=== PATIENT | female | born 1970 | race Caucasian/White ===

== ENCOUNTER 2017-10-21 18:26 | Emergency (ER) | payer BC ==
[2017-10-21] MEDS ORDERED: Amoxicillin/Clavulanate TAB* 875 MG PO ONE (20:40)
[2017-10-21] MEDS ORDERED: Benzonatate CAP* 100 MG PO ONE (20:41)
[2017-10-21 20:47] VITALS: BP 126/74
--- NOTE | 2017-10-21 20:49 | UC ---
Throat Pain/Nasal Curtis HPI - HPI Summary HPI Summary: ONE WEEK OF RIGHT EAR ACHE, PRODUCTIVE COUGH. - History of Current Complaint Chief Complaint: UCRespiratory Stated Complaint: COUGH,CONGESTION Time Seen by Provider: 10/21/17 20:35 Hx Obtained From: Patient, Family/Softball Winder Onset/Duration: Gradual Onset, Lasting Weeks, Still Present Severity: Moderate Cough: Productive Associated Signs & Symptoms: Positive: Hoarseness, Sinus Discomfort, Nasal Discharge - Epiglottits Risk Factors Epiglottis Risk Factors: Negative - Allergies/Home Medications Allergies/Adverse Reactions: Allergies Allergy/AdvReac Type Severity Reaction Status Date / Time No Known Allergies Allergy Verified 10/21/17 20:20 PMH/Surg Hx/FS Hx/Imm Hx Previously Healthy: Yes - Surgical History Surgical History: Yes Surgery Procedure, Year, and Place: Ear tubes. C-sec x2. Endometrial ablation. Tubal ligation - Family History Known Family History: Negative: Respiratory Disease - Social History Occupation: Employed Full-time Lives: With Family Alcohol Use: None Substance Use Type: None Smoking Status (MU): Never Smoked Tobacco - Immunization History Most Recent Influenza Vaccination: no Review of Systems Constitutional: Negative Skin: Negative Eyes: Negative ENT: Sinus Congestion, Sinus Pain/Tenderness Respiratory: Cough Cardiovascular: Negative Gastrointestinal: Negative Genitourinary: Negative Motor: Negative Neurovascular: Negative Musculoskeletal: Negative Neurological: Negative Psychological: Negative Is Patient Immunocompromised?: No All Other Systems Reviewed And Are Negative: Yes Physical Exam Triage Information Reviewed: Yes Appearance: Well-Appearing, No Pain Distress, Well-Nourished Vital Signs: Initial Vital Signs Temp 97.7 F 10/21/17 20:20 Pulse 99 10/21/17 20:20 Resp 20 10/21/17 20:20 BP 126/74 10/21/17 20:20 Pulse Ox 99 10/21/17 20:20 Vital Signs Reviewed: Yes Eye Exam: Normal ENT: Positive: Nasal congestion, Nasal drainage, TM dull Dental Exam: Normal Dental: Positive: Percussion Tenderness @, Gross Decay/Caries @, Dental Fracture @ Neck exam: Normal Neck: Positive: Supple, Nontender, No Lymphadenopathy Respiratory Exam: Other - COUGH Respiratory: Positive: Chest non-tender, Lungs clear, Normal breath sounds, No respiratory distress, No accessory muscle use Cardiovascular Exam: Normal Cardiovascular: Positive: RRR, No Murmur, Pulses Normal Abdominal Exam: Normal Abdomen Description: Positive: Nontender, No Organomegaly Musculoskeletal Exam: Normal Musculoskeletal: Positive: Strength Intact, ROM Intact Neurological Exam: Normal Psychological Exam: Normal Skin Exam: Normal Throat Pain/Nasal Course/Dx - Differential Dx/Diagnosis Differential Diagnosis/HQI/PQRI: Sinusitis, Tonsillitis, URI Provider Diagnoses: SINUSITIS; BRONCHITIS Discharge - Discharge Plan Condition: Stable Disposition: HOME Prescriptions: Amoxicillin/Clavulanate TAB* [Augmentin TAB 875*] 875 mg PO BID #20 tab Benzonatate CAP* [Tessalon 100 MG CAP*] 100 mg PO TID PRN #12 cap PRN Reason: Cough Patient Education Materials: Sinusitis (ED), Acute Bronchitis (ED) Referrals: Arlyn Guy MD [Primary Care Provider] -
--- OUTSIDE RECORDS SUMMARY | 2017-10-21 21:06 | XMS REPORT | Continuity of Care Document ---
:[address] [facility] Care Team Providers Name Role Phone KALPANA IGNACIO MD Primary Care Physician [phone] Insurance Providers Payer Name Policy Number Subscriber Name Relationship BLUE PPO [id number] TITA LEWIS SELF Advance Directives Directive Response Recorded Date/Time Code status: Full code 09/22/17 11:44am Advance Directive? N 09/22/17 11:44am Living Will? N 09/22/17 11:44am Health Care Proxy? N 09/22/17 11:44am Is the patient an Organ Donor? Y 09/22/17 11:44am Chief Complaint and Reason for Visit Reason for Visit POSS CONCUSSION,HARD TIME SEEING Problems No problem information available. Medications Current Home Medications Medication Dose Units Route Directions Days/Qty Instructions Start Date Citalopram Hydrobromide 10 MG ORAL ONCE DAILY (Celexa) 10 MG TABLET Past Home Medications Medication Directions Ordered Status Amoxicillin (Amoxil) 875 Mg Tab Tab, 875 Mg Oral 3 TIMES DAILY 01/01/07 Discontinued Warfarin Sodium (Coumadin) 10 Mg Tab Tab, Unknown Discontinued Warfarin Sodium (Coumadin) 10 Mg Tablet Tablet, ONCE DAILY Unknown Discontinued 10 Mg Oral Social History Problem Response Recorded Date Other substance/drug use DENIES 09/22/17 Alcohol amt OCCAS 04/16/11 Query Response Start Date Stop Date Smoking Status Never smoker Hospital Discharge Instructions No hospital discharge instructions. Plan of Care Discharge Date 09/22/17 Disposition Routine Discharge Home Instructions/Education Provided Concussion (ED) Head Injury (ED) Prescriptions See Medications Section Referrals KALPNAA IGNACIO MD - Additional Instructions/Education You need to make an appointment to follow- up with the following health care provider or your regular doctor within 3 days. Please make your appointment to see your health care provider as soon as possible. Please return immediately if your symptoms worsen, or you cannot get a follow-up appointment. Functional Status Query Response Date Recorded Do you get in and out of a chair: Independently September 22, 2017 11:45am Do you bathe/dress: Independently September 22, 2017 11:45am Adaptive devices: None September 22, 2017 11:45am Living situation: Independent at home September 22, 2017 11:45am Allergies, Adverse Reactions, Alerts Allergen Type Severity Reaction Status Last Updated codeine AdvReac Intermediate VOMITING Active 09/22/17 Immunizations Name Date Given Type Last Tetanus Historical Vital Signs Vital Reading Collection Date/Time Result Blood Pressure 09/22/17 1:55pm 110/79 Temperature 09/22/17 1:55pm 98.2 F Temperature Source 09/22/17 1:55pm Oral Respiratory Rate 09/22/17 1:55pm 19 Pulse Rate 09/22/17 1:55pm 80 Bedside Pulse Oximetry 09/22/17 1:55pm 97 Height 09/22/17 11:41am 5 ft 7 in Height 09/22/17 11:41am 170.18 cm Weight 09/22/17 11:41am 170 lb Weight 09/22/17 11:41am 77.112 kg Body Mass Index 09/22/17 11:41am 26.6 kg/m2 Results No known relevant diagnostic tests, laboratory data and/or discharge summary. Procedures Procedure Status Date Provider(s) CT BRAIN W/O IV CONTRAST Completed 09/22/[address] CERV SPINE W/O IV CONTRAST Completed 09/22/17 SHANDA FORRESTER Encounters Encounter Location Arrival/Admit Date Discharge/Depart Date Attending Provider Departed [place] 09/22/17 11:37am 09/22/17 2:00pm [facility]
== END 2017-10-21 20:52 | disposition home or self-care (01) ==
LOC: UCCORT 18:26
DX: J32.9 Chronic sinusitis, unspecified (principal); J40 Bronchitis, not specified as acute or chronic
CPT/HCPCS: 99212; A9270-GY; G0463